=== PATIENT | male | born 1950 | race Caucasian/White ===

== ENCOUNTER 2018-03-11 12:49 | Emergency (ER) | payer OTHER ==
[~2018-03-11] VITALS: Ht 172.7 cm; Wt 70.3 kg
[2018-03-11 13:42] LABS: ABSOLUTE NEUTROPHILS 9.2 thou/uL (1.4-8.2); BASOPHILS 0.4 % (0.0-2.0); HEMATOCRIT 43.3 % (42.0-52.0); HEMOGLOBIN 14.7 gm/dL (14.0-18.0); LYMPHOCYTES 12.5 % (24.0-44.0); MCH 28.8 pg (26.0-34.0); MCHC 34.1 g/dL (28.0-37.0); MCV 84.5 fL (80.0-100.0); MONOCYTES 10.3 % (1.0-8.0); PLATELET COUNT 202 thou/uL (150-400); POLYS 75.8 % (36.0-66.0); RBC 5.12 mil/uL (4.50-6.00); RDW 13.9 % (10.5-14.5); WBC 12.1 thou/uL (4.0-11.0)
[2018-03-11 13:47] LABS: CALCIUM 9.7 mg/dL (8.5-10.1); CREATININE 0.9 mg/dL (0.7-1.3); POTASSIUM 3.6 mmol/L (3.5-5.1)
[2018-03-11 13:56] LABS: ALBUMIN 3.6 g/dL (3.4-5.0); DIRECT BILIRUBIN 0.2 mg/dL (<0.1-0.3); TOTAL BILIRUBIN 1.1 mg/dL (<0.1-1.0); TOTAL PROTEIN 7.3 g/dL (6.4-8.2)
[2018-03-11 14:33] VITALS: BP 117/81
== END 2018-03-11 14:40 | disposition home or self-care (01) ==
LOC: ER 12:49
PROVIDERS: Emergency Medicine
DX: K64.9 Unspecified hemorrhoids (principal); R19.7 Diarrhea, unspecified